=== PATIENT | male | born 1990 | race Caucasian/White ===

== ENCOUNTER 2019-06-09 20:41 | Emergency (ER) | payer SELFPAY ==
[~2019-06-09] VITALS: Ht 177.8 cm; Wt 85.0 kg
[2019-06-09 20:50] VITALS: BP 117/85
--- NOTE | 2019-06-09 22:26 | NUR ---
PT SLEEPING SOUNDLY, NO COMPLAINTS
--- NOTE | 2019-06-10 00:04 | NUR ---
PT SLEEPING, NO COMPLAINTS
--- NOTE | 2019-06-10 01:04 | NUR ---
PT ALERT AND ORIENTED, DENIES MEDICAL COMPLAINT, AMBULATES WITHOUT ASSISTANCE
== END 2019-06-10 01:07 | disposition home or self-care (01) ==
LOC: ED 23:57
DX: F10.120 Alcohol abuse with intoxication, uncomplicated (principal); Y90.0 Blood alcohol level of less than 20 mg/100 ml
CPT/HCPCS: 99283

== ENCOUNTER 2019-06-10 21:46 | Inpatient (IN) | payer OTHER ==
[~2019-06-10] VITALS: Ht 182.9 cm; Wt 103.4 kg
[2019-06-10] MEDS ORDERED: LORazepam 2 MG/ML, 1ML ONE ×2 (21:55→22:19)
--- NOTE | 2019-06-10 21:55 | NUR ---
TEMP PROBE PETE PLACED BY LIAN VARGAS RN.
[2019-06-10] MEDS ORDERED: ACETAMINOPHEN 500 MG TABLET ONE (21:58)
--- NOTE | 2019-06-10 21:59 | NUR ---
CORE TEMP 106, COOLING MEASURES STARTED, NOTES PT TO BE INTUBATED AND THEN WILL DO ICE LAVAGE PETE/NG
[2019-06-10] MEDS ORDERED: SODIUM CHLORIDE 0.9% 1,000ML IVBOLUS ONE ×3 (22:00→23:30)
[2019-06-10] MEDS ORDERED: ACETAMINOPHEN 500 MG TABLET PO ONE (22:00)
[2019-06-10] MEDS ORDERED: LORazepam 2 MG/ML, 1ML IVPush PRN (22:00)
[2019-06-10] MEDS ORDERED: LORazepam 2 MG/ML, 1ML IVPush ONE ×2 (22:00→22:30)
[2019-06-10] MEDS ORDERED: SODIUM CHLORIDE FLUSH 10ML SYR IVF ONE ×2 (22:00)
--- NOTE | 2019-06-10 22:00 | NUR ---
DR BA CALLING POISON CONTROL
--- NOTE | 2019-06-10 22:05 | NUR ---
PT TO BE INTUBATED WITH 8.0 ET TUBE, MEDICATED WITH ROCURONIUM 100MG, ETOMIDATE 20MG, RT TO BEDSIDE,
[2019-06-10 22:07] LABS: MEAN CORPUSCULAR HEMOGLOBIN 31.9 pg (27.5-34.5); MEAN CORPUSCULAR HGB CONC 33.7 g/dL (33.2-36.2); MEAN CORPUSCULAR VOLUME 94.5 fL (81-97); MEAN PLATELET VOLUME 8.9 fL (7.4-10.4); PLATELET COUNT 395 x10^3/uL (130-400); RED BLOOD COUNT 4.91 x10^6/uL (4.38-5.82); RED CELL DISTRIBUTION WIDTH 13.7 % (9.4-14.8)
--- NOTE | 2019-06-10 22:11 | NUR ---
PT INTUBATED AT THIS TIME, PLACEMENT CONFIRMED WITH BREATH SOUNDS BILAT AND EQUAL RISE AND FALL OF CHEST , END TIDAL 16, CO2 DETECTOR. SPO2 REMAINED ABOVE 90% THROUGHOUT INTUBATION. 16 [place] OG TUBE PLACED BY DANIEL YANES, PLACEMENT CONFIRMED BY AUSCULATION AND ASPIRATION. ET TUBE SECURED 25 AT THE TEETH
[2019-06-10 22:15] LABS: ALANINE AMINOTRANSFERASE 133 U/L (12-78); ALBUMIN 3.9 g/dL (3.4-5.0); ANION GAP 16 mmol/L (5-15); CALCIUM 8.7 mg/dL (8.5-10.1); CHLORIDE 104 mmol/L (98-107); CREATININE 2.79 mg/dL (0.7-1.3)
--- NOTE | 2019-06-10 22:15 | NUR ---
DR BA TALKING WITH POISON CONTROL AT THIS TIME. PT TO BE PLACED IN BODY BAG AND FILLED WITH ICE AT THIS TIME, ICE PACKS ALREADY TO AXILLA AND GROIN
[2019-06-10] MEDS ORDERED: PROPOFOL 100 ML IV PRN ×2 (22:19→23:40)
[2019-06-10 22:20] LABS: ALKALINE PHOSPHATASE 129 U/L (45-117); BILIRUBIN,TOTAL 1.3 mg/dL (0.2-1.0); TOTAL PROTEIN 8.3 g/dL (6.4-8.2)
[2019-06-10 22:22] LABS: SALICYLATE LEVEL < 1.7 mg/dL (2.8-20.0)
--- NOTE | 2019-06-10 22:22 | NUR ---
POISON CONTROL NOTES NOT TO ICE BAD, RECOMEEND ARTIC SUN FOR COOLING, PROPOFOL AND VERSED FOR SEDATION, RECOMMENT ATIVAN 2MG BE GIVEN AT THIS TIME. PT SEDATED CURRENTLY, BEING PLACED ON ARTIC SUN AT THIS TIME AND PREPARED FOR CENTRAL LINE PLACEMENT
[2019-06-10] MEDS ORDERED: CALCIUM CHLORIDE 10%, 10ML SYR ONE (22:29)
[2019-06-10] MEDS ORDERED: ALBUTEROL 0.5%, 20ML NPPB ONE (22:30)
[2019-06-10] MEDS ORDERED: FUROSEMIDE 40 MG/4 ML IVPush ONE (22:30)
[2019-06-10] MEDS ORDERED: DEXTROSE 50%, 50ML SYRINGE IVPush ONE (22:30)
[2019-06-10] MEDS ORDERED: INSULIN SINGLE DOSE, ER ONE (22:30)
[2019-06-10] MEDS ORDERED: INSULIN REGULAR 100 UNITS/ML, 3ML VIAL IVPush ONE (22:30)
[2019-06-10] MEDS ORDERED: ETOMIDATE 20 MG/10 ML IV ONE (22:30)
[2019-06-10] MEDS ORDERED: SODIUM BICARB 8.4%, 50ML SYRINGE IVPush ONE (22:30)
[2019-06-10] MEDS ORDERED: CALCIUM CHLORIDE 10%, 10ML SYR IVPush ONE (22:30)
--- NOTE | 2019-06-10 22:32 | NUR ---
ARTIC SUN STARTED AT THIS TIME
[2019-06-10 22:33] LABS: ACETONE, SERUM Small (20mg/dL) mg/dL (Negative)
[2019-06-10 22:35] LABS: BASOPHILS # (AUTO) 0.03 x10^3/uL (0-0.1); BASOPHILS % (AUTO) 0 % (0-1); EOSINOPHILS # (AUTO) 0.11 x10^3/uL (0-0.4); EOSINOPHILS % (AUTO) 1 % (1-7); LYMPHOCYTES # (AUTO) 1.48 x10^3/uL (1-3.4); LYMPHOCYTES % (AUTO) 7 % (22-44); MD MORPH REVIEW ONLY; MONOCYTES # (AUTO) 0.65 x10^3/uL (0.2-0.8); MONOCYTES % (AUTO) 3 % (2-9); NEUTROPHILS # (AUTO) 17.69 x10^3/uL (1.8-6.8); NEUTROPHILS % (AUTO) 89 % (42-75)
[2019-06-10 22:37] LABS: <PLATELET ESTIMATE> ADEQUATE; <RBC MORPHOLOGY> NORMAL; HYPERSEG PMNs 1+; LARGE PLATELETS 1+
[2019-06-10] MEDS ORDERED: SODIUM CHLORIDE 0.9% 1,000 ML IV ONE (22:37)
[2019-06-10] MEDS: MIDAZOLAM HCL 25 MG in SODIUM CHLORIDE 0.9% 245 ML IV PRN ×2 (22:40→23:19)
[2019-06-10] MEDS ORDERED: FUROSEMIDE 40 MG/4 ML ONE (22:41)
[2019-06-10 22:46] LABS: AMPHETAMINE SCREEN, URINE Positive (Negative); BARBITURATE SCREEN, URINE Negative (Negative); BENZODIAZEPINE SCREEN, URINE Negative (Negative); CANNABINOID SCREEN, URINE Negative (Negative); COCAINE SCREEN, URINE Negative (Negative); METHADONE SCREEN, URINE Negative (Negative); OPIATE SCREEN, URINE Negative (Negative)
--- NOTE | 2019-06-10 22:51 | NUR ---
student and ERP at bedside placing central line.
[2019-06-10 23:10] LABS: INTERNATIONAL NORMALIZED RATIO 1.03 (0.93-1.1); PROTHROMBIN TIME 10.8 Seconds (9.6-11.5)
--- NOTE | 2019-06-10 23:14 | NUR ---
per erp temp target 36.8 c , when target reached will stop the arctic sun.
[2019-06-10 23:27] LABS: RAPID INFLUENZA A Negative (Negative); RAPID INFLUENZA B Negative (Negative)
[2019-06-10] MEDS ORDERED: VANCOMYCIN PER PHARMACY MC ONE (23:30)
[2019-06-10] MEDS ORDERED: VANCOMYCIN 2,200 MG in SODIUM CHLORIDE 0.9% 500 ML IV ONE (23:30)
[2019-06-10] MEDS ORDERED: PIPERACILLIN/TAZO/PMX 3.375GM 50 ML IVPB ONE (23:30)
[2019-06-10 23:31] LABS: MICROSCOPIC INDICATED
[2019-06-10] MEDS ORDERED: PIPERACILLIN/TAZO/PMX 3.375GM 50 ML ONE (23:34)
--- NOTE | 2019-06-10 23:39 | NUR ---
CENTRAL LINE CLEARED FOR USE BY DR BA, HOSPITALIST TO BEDSIDE
[2019-06-10 23:40] LABS: CULTURE INDICATED? NO
[2019-06-10] MEDS ORDERED: MIDAZOLAM HCL 25 MG in SODIUM CHLORIDE 0.9% 245 ML IV PRN (23:40)
[2019-06-11] MEDS ORDERED: MIDAZOLAM 1 MG/ML, 2ML IVPush PRN
[2019-06-11] MEDS ORDERED: LACTULOSE 20 GM/30 ML UDC NG PRN
[2019-06-11] MEDS ORDERED: GLUCAGON 1 MG IM PRN
[2019-06-11] MEDS ORDERED: DEXTROSE 4 GM TAB.CHEW PO PRN
[2019-06-11] MEDS ORDERED: SENNA/DOCUSATE TABLET NG PRN
[2019-06-11] MEDS ORDERED: SODIUM CHLORIDE 0.9% 1,000 ML IV SCH
[2019-06-11] MEDS ORDERED: SENNA 176 MG/5 ML ORAL SOL NG PRN
[2019-06-11] MEDS ORDERED: BISACODYL 10 MG SUPP PR PRN
--- NOTE | 2019-06-11 00:06 | NUR ---
BED ASSIGNED. REPORT GIVEN TO FARZANA RUCKER.
[2019-06-11] MEDS: MIDAZOLAM HCL 25 MG in SODIUM CHLORIDE 0.9% 245 ML IV PRN ×3 (01:51→08:49)
[2019-06-11 02:25] VITALS: BP 123/71
[2019-06-11 04:00] VITALS: BP 99/65
[2019-06-11 04:40] LABS: MEAN CORPUSCULAR HEMOGLOBIN 31.9 pg (27.5-34.5); MEAN CORPUSCULAR HGB CONC 33.4 g/dL (33.2-36.2); MEAN CORPUSCULAR VOLUME 95.6 fL (81-97); MEAN PLATELET VOLUME 8.7 fL (7.4-10.4); PLATELET COUNT 214 x10^3/uL (130-400); RED BLOOD COUNT 4.57 x10^6/uL (4.38-5.82); RED CELL DISTRIBUTION WIDTH 13.6 % (9.4-14.8)
[2019-06-11 04:46] LABS: ANION GAP 9 mmol/L (5-15); CALCIUM 7.8 mg/dL (8.5-10.1); CHLORIDE 110 mmol/L (98-107); CREATININE 1.61 mg/dL (0.7-1.3)
[2019-06-11 05:03] LABS: BASOPHILS # (AUTO) 0.06 x10^3/uL (0-0.1); BASOPHILS % (AUTO) 0 % (0-1); EOSINOPHILS # (AUTO) 0.01 x10^3/uL (0-0.4); EOSINOPHILS % (AUTO) 0 % (1-7); LYMPHOCYTES # (AUTO) 0.93 x10^3/uL (1-3.4); LYMPHOCYTES % (AUTO) 4 % (22-44); MD MORPH REVIEW ONLY; MONOCYTES # (AUTO) 0.78 x10^3/uL (0.2-0.8); MONOCYTES % (AUTO) 4 % (2-9); NEUTROPHILS # (AUTO) 19.25 x10^3/uL (1.8-6.8); NEUTROPHILS % (AUTO) 92 % (42-75)
[2019-06-11 05:04] LABS: <PLATELET ESTIMATE> ADEQUATE; <RBC MORPHOLOGY> NORMAL; HYPERSEG PMNs 1+; LARGE PLATELETS 1+
[2019-06-11] MEDS: INSULIN LISPRO 100 UNITS/ML, PEN SQ-INSULIN SCH ×4 (07:00→22:00)
[2019-06-11] MEDS ORDERED: PHARMACY MAY ADJ FOR RENAL FX MC SCH ×2 (08:00)
[2019-06-11] MEDS ORDERED: FENTANYL PF 100 MCG/2ML IVPush PRN (08:00)
[2019-06-11] MEDS ORDERED: LIDOCAINE-MPF 1%, 2ML ENDO PRN ×2 (08:00)
[2019-06-11] MEDS: THIAMINE 200 MG in SODIUM CHLORIDE 0.9% 50 ML IV SCH (08:25)
[2019-06-11] MEDS: PIPERACILLIN/TAZO/PMX 3.375GM 50 ML IV SCH ×3 (08:25→19:59)
[2019-06-11] MEDS: FAMOTIDINE 20 MG/2 ML IV SCH ×2 (08:25→20:01)
[2019-06-11] MEDS: HEPARIN 5,000 UNITS/ML, 1ML SQ SCH ×2 (08:25→16:02)
[2019-06-11] MEDS: POTASSIUM CHLORIDE 10% 40 MEQ/30 ML UDC PO SCH ×2 (08:25→20:02)
[2019-06-11] MEDS: CHOLESTYRAMINE LIGHT 4GM PACKET PO SCH ×2 (08:26→20:02)
[2019-06-11] MEDS: SODIUM CHLORIDE FLUSH 10ML SYR IVF SCH ×2 (08:27→20:01)
[2019-06-11 08:57] LABS: CREATINE KINASE, TOTAL 8813 U/L (39-308); TRIGLYCERIDES 172 mg/dL (50-200)
[2019-06-11] MEDS ORDERED: SODIUM BICARB 8.4%, 50ML SYRINGE ONE (10:39)
[2019-06-11] MEDS ORDERED: ETOMIDATE 40 MG/20 ML ONE (10:40)
[2019-06-11] MEDS ORDERED: PROPOFOL 10 MG/ML, 100ML IV ONE (10:40)
[2019-06-11] MEDS ORDERED: ROCURONIUM 10MG/ML,5ML ONE (10:40)
[2019-06-11] MEDS: MIDAZOLAM HCL 50 MG in SODIUM CHLORIDE 0.9% 240 ML IV PRN ×2 (11:42→17:52)
[2019-06-11] MEDS: PROPOFOL 100 ML IV PRN ×3 (11:44→20:25)
[2019-06-11] MEDS: DEXTROSE 50%, 50ML SYRINGE IVPush PRN ×2 (14:02→21:50)
[2019-06-11] MEDS ORDERED: MIDAZOLAM HCL 25 MG in SODIUM CHLORIDE 0.9% 245 ML IV PRN (23:40)
[2019-06-11] MEDS: D5%-0.9% NACL 1,000 ML IV SCH (23:44)
[2019-06-12] MEDS ORDERED: SODIUM CHLORIDE 0.9% 1,000 ML IV SCH
[2019-06-12] MEDS: PIPERACILLIN/TAZO/PMX 3.375GM 50 ML IV SCH ×4 (00:32→18:15)
[2019-06-12] MEDS: HEPARIN 5,000 UNITS/ML, 1ML SQ SCH ×3 (00:32→15:48)
[2019-06-12] MEDS: MIDAZOLAM HCL 50 MG in SODIUM CHLORIDE 0.9% 240 ML IV PRN (00:33)
[2019-06-12] MEDS: PROPOFOL 100 ML IV PRN ×2 (02:00→06:36)
[2019-06-12 03:58] VITALS: BP 105/68
[2019-06-12] MEDS: INSULIN LISPRO 100 UNITS/ML, PEN SQ-INSULIN SCH ×4 (04:00→22:58)
[2019-06-12 04:29] LABS: BASOPHILS # (AUTO) 0.02 x10^3/uL (0-0.1); BASOPHILS % (AUTO) 0 % (0-1); EOSINOPHILS # (AUTO) 0.06 x10^3/uL (0-0.4); EOSINOPHILS % (AUTO) 1 % (1-7); LYMPHOCYTES # (AUTO) 1.78 x10^3/uL (1-3.4); LYMPHOCYTES % (AUTO) 18 % (22-44); MD NO; MEAN CORPUSCULAR HEMOGLOBIN 31.7 pg (27.5-34.5); MEAN CORPUSCULAR HGB CONC 33.1 g/dL (33.2-36.2); MEAN CORPUSCULAR VOLUME 95.9 fL (81-97); MEAN PLATELET VOLUME 8.7 fL (7.4-10.4); MONOCYTES # (AUTO) 0.26 x10^3/uL (0.2-0.8); MONOCYTES % (AUTO) 3 % (2-9); NEUTROPHILS # (AUTO) 8.03 x10^3/uL (1.8-6.8); NEUTROPHILS % (AUTO) 79 % (42-75); PLATELET COUNT 191 x10^3/uL (130-400); RED BLOOD COUNT 4.12 x10^6/uL (4.38-5.82); RED CELL DISTRIBUTION WIDTH 14.4 % (9.4-14.8)
[2019-06-12 04:34] LABS: ANION GAP 4 mmol/L (5-15); CALCIUM 7.5 mg/dL (8.5-10.1); CHLORIDE 116 mmol/L (98-107); CREATININE 1.22 mg/dL (0.7-1.3)
[2019-06-12 04:55] LABS: CLOSTRIDIUM DIFFICILE ANTIGEN NEGATIVE; CLOSTRIDIUM DIFFICILE TOXIN NEGATIVE (Negative)
[2019-06-12] MEDS: SODIUM CHLORIDE FLUSH 10ML SYR IVF SCH ×2 (08:40→21:21)
[2019-06-12] MEDS: CHOLESTYRAMINE LIGHT 4GM PACKET PO SCH ×2 (08:40→21:00)
[2019-06-12] MEDS: FAMOTIDINE 20 MG/2 ML IV SCH ×2 (08:40→21:21)
[2019-06-12] MEDS: THIAMINE 200 MG in SODIUM CHLORIDE 0.9% 50 ML IV SCH (08:47)
[2019-06-12] MEDS ORDERED: ACETAMINOPHEN 325 MG TABLET ONE (10:07)
[2019-06-12] MEDS ORDERED: ACETAMINOPHEN 325 MG TABLET PO PRN (10:30)
[2019-06-12] MEDS ORDERED: VANCOMYCIN PER PHARMACY MC PRN (12:30)
[2019-06-12] MEDS: DEXMEDETOMIDINE 200 MCG in SODIUM CHLORIDE 0.9% 48 ML IV PRN ×2 (12:34→22:56)
[2019-06-12] MEDS ORDERED: PHARMACOKINETIC MONITORING MC PRN (13:00)
[2019-06-12] MEDS: D5%-0.9% NACL 1,000 ML IV SCH (13:26)
[2019-06-12] MEDS: VANCOMYCIN 2,100 MG in SODIUM CHLORIDE 0.9% 500 ML IV SCH (14:33)
[2019-06-12 16:16] LABS: MICROSCOPIC INDICATED
[2019-06-12 16:20] LABS: CULTURE INDICATED? NO
[2019-06-12] MEDS: DEXTROSE 50%, 50ML SYRINGE IVPush PRN (17:30)
[2019-06-13] MEDS: HEPARIN 5,000 UNITS/ML, 1ML SQ SCH ×4 (00:42→23:53)
[2019-06-13] MEDS: PIPERACILLIN/TAZO/PMX 3.375GM 50 ML IV SCH ×4 (00:42→21:04)
[2019-06-13] MEDS: VANCOMYCIN 2,100 MG in SODIUM CHLORIDE 0.9% 500 ML IV SCH (02:11)
[2019-06-13] MEDS: INSULIN LISPRO 100 UNITS/ML, PEN SQ-INSULIN SCH (04:00)
[2019-06-13 04:28] LABS: O2 FLOW 0 L/min
[2019-06-13 04:35] LABS: BASOPHILS # (AUTO) 0.04 x10^3/uL (0-0.1); BASOPHILS % (AUTO) 1 % (0-1); EOSINOPHILS # (AUTO) 0.01 x10^3/uL (0-0.4); EOSINOPHILS % (AUTO) 0 % (1-7); LYMPHOCYTES # (AUTO) 2.68 x10^3/uL (1-3.4); LYMPHOCYTES % (AUTO) 34 % (22-44); MD NO; MEAN CORPUSCULAR HEMOGLOBIN 31.8 pg (27.5-34.5); MEAN CORPUSCULAR HGB CONC 33.8 g/dL (33.2-36.2); MEAN PLATELET VOLUME 8.9 fL (7.4-10.4); MONOCYTES # (AUTO) 0.45 x10^3/uL (0.2-0.8); MONOCYTES % (AUTO) 6 % (2-9); NEUTROPHILS # (AUTO) 4.77 x10^3/uL (1.8-6.8); NEUTROPHILS % (AUTO) 60 % (42-75); PLATELET COUNT 175 x10^3/uL (130-400); RED BLOOD COUNT 4.13 x10^6/uL (4.38-5.82); RED CELL DISTRIBUTION WIDTH 13.6 % (9.4-14.8)
[2019-06-13 04:42] LABS: ANION GAP 7 mmol/L (5-15); CALCIUM 7.7 mg/dL (8.5-10.1); CHLORIDE 111 mmol/L (98-107)
[2019-06-13] MEDS: D5%-0.9% NACL 1,000 ML IV SCH ×2 (06:33→23:53)
[2019-06-13 07:32] LABS: ALBUMIN 2.7 g/dL (3.4-5.0); BILIRUBIN, DIRECT 0.6 mg/dL (0.1-0.2)
[2019-06-13 08:00] LABS: BILIRUBIN,INDIRECT 0.9 mg/dL (0.0-2.0); BILIRUBIN,TOTAL 1.5 mg/dL (0.2-1.0)
[2019-06-13] MEDS: CHOLESTYRAMINE LIGHT 4GM PACKET PO SCH ×2 (08:32→21:04)
[2019-06-13] MEDS: SODIUM CHLORIDE FLUSH 10ML SYR IVF SCH ×2 (08:32→21:00)
[2019-06-13] MEDS: POTASSIUM CHLORIDE 20 MEQ TAB.ER.PRT PO SCH ×2 (08:32→16:55)
[2019-06-13] MEDS: FAMOTIDINE 20 MG/2 ML IV SCH (08:32)
[2019-06-13] MEDS: THIAMINE 200 MG in SODIUM CHLORIDE 0.9% 50 ML IV SCH (08:33)
[2019-06-13] MEDS ORDERED: SODIUM PHOSPHATE 20 MMOL in SODIUM CHLORIDE 0.9% 500 ML IV ONE (09:30)
[2019-06-13 19:55] VITALS: BP 120/80
[2019-06-14 00:53] VITALS: BP 132/90
[2019-06-14] MEDS: PIPERACILLIN/TAZO/PMX 3.375GM 50 ML IV SCH ×4 (03:17→22:04)
[2019-06-14 05:02] LABS: ALBUMIN 2.9 g/dL (3.4-5.0); ANION GAP 7 mmol/L (5-15); CHLORIDE 109 mmol/L (98-107)
[2019-06-14 05:34] LABS: ALANINE AMINOTRANSFERASE 415 U/L (12-78); ALKALINE PHOSPHATASE 80 U/L (45-117); BILIRUBIN,TOTAL 1.3 mg/dL (0.2-1.0); CREATININE 1.14 mg/dL (0.7-1.3); TOTAL PROTEIN 6.7 g/dL (6.4-8.2)
[2019-06-14 06:29] LABS: CREATINE KINASE, TOTAL 13684 U/L (39-308)
[2019-06-14 06:38] VITALS: BP 137/96
[2019-06-14] MEDS: POTASSIUM CHLORIDE 20 MEQ TAB.ER.PRT PO SCH ×2 (07:53→16:20)
[2019-06-14] MEDS: HEPARIN 5,000 UNITS/ML, 1ML SQ SCH ×2 (07:53→16:20)
[2019-06-14] MEDS ORDERED: MAGNESIUM SULFATE PMX 2GM/50ML 50 ML IV ONE (08:00)
[2019-06-14] MEDS ORDERED: POTASSIUM CHLORIDE 40 MEQ in SODIUM CHLORIDE 0.9% 500 ML IV ONE (08:30)
[2019-06-14] MEDS: SODIUM CHLORIDE FLUSH 10ML SYR IVF SCH ×2 (09:00→20:06)
[2019-06-14] MEDS: D5%-0.9% NACL 1,000 ML IV SCH ×2 (10:46→17:40)
[2019-06-14] MEDS: THIAMINE 200 MG in SODIUM CHLORIDE 0.9% 50 ML IV SCH (10:46)
[2019-06-14 13:52] VITALS: BP 130/79
[2019-06-14] MEDS: OLANZAPINE 5 MG TABLET PO SCH (20:06)
[2019-06-14 20:09] VITALS: BP 129/88
[2019-06-15] MEDS: HEPARIN 5,000 UNITS/ML, 1ML SQ SCH ×3 (00:32→17:15)
[2019-06-15] MEDS: D5%-0.9% NACL 1,000 ML IV SCH ×3 (00:32→17:15)
[2019-06-15 01:50] VITALS: BP 117/76
[2019-06-15] MEDS: PIPERACILLIN/TAZO/PMX 3.375GM 50 ML IV SCH ×4 (04:38→23:17)
[2019-06-15 06:05] LABS: ALBUMIN 2.8 g/dL (3.4-5.0); ANION GAP 7 mmol/L (5-15); CALCIUM 8.2 mg/dL (8.5-10.1); CHLORIDE 111 mmol/L (98-107)
[2019-06-15 06:06] LABS: BASOPHILS # (AUTO) 0.02 x10^3/uL (0-0.1); BASOPHILS % (AUTO) 0 % (0-1); EOSINOPHILS # (AUTO) 0.09 x10^3/uL (0-0.4); EOSINOPHILS % (AUTO) 1 % (1-7); LYMPHOCYTES # (AUTO) 2.81 x10^3/uL (1-3.4); LYMPHOCYTES % (AUTO) 27 % (22-44); MD NO; MEAN CORPUSCULAR HEMOGLOBIN 31.5 pg (27.5-34.5); MEAN CORPUSCULAR HGB CONC 32.8 g/dL (33.2-36.2); MEAN PLATELET VOLUME 8.9 fL (7.4-10.4); MONOCYTES # (AUTO) 1.15 x10^3/uL (0.2-0.8); MONOCYTES % (AUTO) 11 % (2-9); NEUTROPHILS # (AUTO) 6.56 x10^3/uL (1.8-6.8); NEUTROPHILS % (AUTO) 62 % (42-75); PLATELET COUNT 230 x10^3/uL (130-400); RED BLOOD COUNT 4.73 x10^6/uL (4.38-5.82); RED CELL DISTRIBUTION WIDTH 13.5 % (9.4-14.8)
[2019-06-15 06:12] LABS: ALANINE AMINOTRANSFERASE 333 U/L (12-78); ALKALINE PHOSPHATASE 77 U/L (45-117); BILIRUBIN,TOTAL 1.1 mg/dL (0.2-1.0); CREATININE 1.18 mg/dL (0.7-1.3); TOTAL PROTEIN 6.9 g/dL (6.4-8.2); TROPONIN I 0.075 ng/mL (0.000-0.045)
[2019-06-15 06:33] LABS: CREATINE KINASE, TOTAL 7337 U/L (39-308)
[2019-06-15 07:56] VITALS: BP 138/82
[2019-06-15] MEDS: SODIUM CHLORIDE FLUSH 10ML SYR IVF SCH ×2 (08:48→21:23)
[2019-06-15] MEDS: OLANZAPINE 5 MG TABLET PO SCH ×2 (08:48→21:22)
[2019-06-15] MEDS: THIAMINE 200 MG in SODIUM CHLORIDE 0.9% 50 ML IV SCH (09:58)
[2019-06-15 19:52] VITALS: BP 140/90
[2019-06-16] MEDS: D5%-0.9% NACL 1,000 ML IV SCH ×4 (00:15→21:06)
[2019-06-16] MEDS: HEPARIN 5,000 UNITS/ML, 1ML SQ SCH (00:15)
[2019-06-16 01:38] VITALS: BP 132/79
[2019-06-16] MEDS: PIPERACILLIN/TAZO/PMX 3.375GM 50 ML IV SCH (04:17)
[2019-06-16] MEDS: SODIUM CHLORIDE FLUSH 10ML SYR IVF SCH ×2 (07:38→20:01)
[2019-06-16] MEDS: AMOXICILLIN/CLAV 875-125MG TABLET PO SCH ×2 (07:43→20:00)
[2019-06-16] MEDS: OLANZAPINE 5 MG TABLET PO SCH ×2 (07:44→20:00)
[2019-06-16] MEDS: ENOXAPARIN 40 MG/0.4 ML SQ SCH (07:44)
[2019-06-16 08:05] VITALS: BP 109/68
[2019-06-16 08:53] LABS: ALBUMIN 2.7 g/dL (3.4-5.0); ANION GAP 6 mmol/L (5-15); CALCIUM 8.3 mg/dL (8.5-10.1); CHLORIDE 113 mmol/L (98-107)
[2019-06-16 09:09] LABS: ALANINE AMINOTRANSFERASE 248 U/L (12-78); ALKALINE PHOSPHATASE 76 U/L (45-117); BILIRUBIN,TOTAL 0.8 mg/dL (0.2-1.0); CREATINE KINASE, TOTAL 3474 U/L (39-308); CREATININE 1.17 mg/dL (0.7-1.3); TOTAL PROTEIN 6.7 g/dL (6.4-8.2)
[2019-06-16 13:16] VITALS: BP 119/80
[2019-06-16 21:22] VITALS: BP 123/73
[2019-06-17 01:31] VITALS: BP 118/74
[2019-06-17] MEDS: D5%-0.9% NACL 1,000 ML IV SCH ×4 (03:35→22:46)
[2019-06-17 05:14] LABS: BASOPHILS # (AUTO) 0.04 x10^3/uL (0-0.1); BASOPHILS % (AUTO) 0 % (0-1); EOSINOPHILS # (AUTO) 0.16 x10^3/uL (0-0.4); EOSINOPHILS % (AUTO) 2 % (1-7); LYMPHOCYTES # (AUTO) 2.49 x10^3/uL (1-3.4); LYMPHOCYTES % (AUTO) 29 % (22-44); MD NO; MEAN CORPUSCULAR HGB CONC 33.1 g/dL (33.2-36.2); MEAN CORPUSCULAR VOLUME 96.6 fL (81-97); MEAN PLATELET VOLUME 9.2 fL (7.4-10.4); MONOCYTES # (AUTO) 1.12 x10^3/uL (0.2-0.8); MONOCYTES % (AUTO) 13 % (2-9); NEUTROPHILS # (AUTO) 4.69 x10^3/uL (1.8-6.8); NEUTROPHILS % (AUTO) 55 % (42-75); PLATELET COUNT 303 x10^3/uL (130-400)
[2019-06-17 05:20] LABS: ALBUMIN 2.7 g/dL (3.4-5.0); ANION GAP 7 mmol/L (5-15); CALCIUM 8.1 mg/dL (8.5-10.1); CHLORIDE 112 mmol/L (98-107)
[2019-06-17 05:24] LABS: ALANINE AMINOTRANSFERASE 210 U/L (12-78); ALKALINE PHOSPHATASE 88 U/L (45-117); BILIRUBIN,TOTAL 0.5 mg/dL (0.2-1.0); CREATININE 1.04 mg/dL (0.7-1.3); TOTAL PROTEIN 6.7 g/dL (6.4-8.2)
[2019-06-17 07:13] VITALS: BP 118/72
[2019-06-17] MEDS: SODIUM CHLORIDE FLUSH 10ML SYR IVF SCH ×2 (08:58→20:38)
[2019-06-17] MEDS: AMOXICILLIN/CLAV 875-125MG TABLET PO SCH ×2 (08:58→20:38)
[2019-06-17] MEDS: ENOXAPARIN 40 MG/0.4 ML SQ SCH (08:58)
[2019-06-17] MEDS: OLANZAPINE 5 MG TABLET PO SCH ×2 (08:58→20:38)
[2019-06-17 13:48] VITALS: BP 120/71
[2019-06-17 18:24] VITALS: BP 125/80
[2019-06-18 00:07] VITALS: BP 122/74
[2019-06-18] MEDS: D5%-0.9% NACL 1,000 ML IV SCH ×3 (05:22→18:25)
[2019-06-18 05:38] LABS: CHLORIDE 110 mmol/L (98-107)
[2019-06-18 05:45] LABS: ALANINE AMINOTRANSFERASE 190 U/L (12-78); ALKALINE PHOSPHATASE 87 U/L (45-117); ANION GAP 5 mmol/L (5-15); BILIRUBIN,TOTAL 0.7 mg/dL (0.2-1.0); CALCIUM 8.6 mg/dL (8.5-10.1); CREATINE KINASE, TOTAL 839 U/L (39-308); CREATININE 1.11 mg/dL (0.7-1.3); TOTAL PROTEIN 7.2 g/dL (6.4-8.2)
[2019-06-18 06:30] VITALS: BP 122/76
[2019-06-18] MEDS: AMOXICILLIN/CLAV 875-125MG TABLET PO SCH ×2 (08:39→21:25)
[2019-06-18] MEDS: OLANZAPINE 5 MG TABLET PO SCH ×2 (08:40→21:25)
[2019-06-18] MEDS: ENOXAPARIN 40 MG/0.4 ML SQ SCH (08:40)
[2019-06-18] MEDS: SODIUM CHLORIDE FLUSH 10ML SYR IVF SCH ×2 (08:40→21:25)
[2019-06-18 13:10] VITALS: BP 123/76
[2019-06-18 18:52] VITALS: BP 129/79
[2019-06-19 01:53] VITALS: BP 109/72
[2019-06-19] MEDS: D5%-0.9% NACL 1,000 ML IV SCH ×2 (02:21→08:22)
[2019-06-19 05:45] LABS: ALBUMIN 2.8 g/dL (3.4-5.0); ANION GAP 8 mmol/L (5-15); CALCIUM 8.6 mg/dL (8.5-10.1); CHLORIDE 110 mmol/L (98-107)
[2019-06-19 05:51] LABS: ALANINE AMINOTRANSFERASE 152 U/L (12-78); ALKALINE PHOSPHATASE 92 U/L (45-117); BILIRUBIN,TOTAL 0.5 mg/dL (0.2-1.0); CREATINE KINASE, TOTAL 348 U/L (39-308); CREATININE 1.09 mg/dL (0.7-1.3); TOTAL PROTEIN 6.7 g/dL (6.4-8.2)
[2019-06-19 06:46] VITALS: BP 103/66
[2019-06-19] MEDS: OLANZAPINE 5 MG TABLET PO SCH (08:21)
[2019-06-19] MEDS: ENOXAPARIN 40 MG/0.4 ML SQ SCH (08:21)
[2019-06-19] MEDS: AMOXICILLIN/CLAV 875-125MG TABLET PO SCH (08:21)
[2019-06-19] MEDS: SODIUM CHLORIDE FLUSH 10ML SYR IVF SCH (08:22)
[2019-06-19 12:29] VITALS: BP 119/69
[2019-06-19] MEDS ORDERED: ERGO500017 PO (13:59)
[2019-06-19] MEDS ORDERED: OLAN5TAB9 PO (13:59)
[2019-06-19] MEDS ORDERED: ERGOCALCIFEROL 50,000 UNIT CAPSULE PO SCH (14:00)
[2019-06-19] MEDS ORDERED: FLU VACC QS2019-20 36MOS UP/PF 0.5 ML IM-VACC ONE (15:00)
== END 2019-06-19 15:58 | disposition home or self-care (01) | DRG 871 ==
LOC: ED 22:30 → EDIP 23:33 → CCU 06-11 00:24 → 4WST 06-13 14:25
PROVIDERS: ADMIT Internal Medicine; ATTEND Internal Medicine
PROC: 02HV33Z Insertion of Infusion Device into Superior Vena Cava, Percutaneous Approach (ICD-10-PCS; principal; 2019-06-10)
PROC: 5A1945Z Respiratory Ventilation, 24-96 Consecutive Hours (ICD-10-PCS; 2019-06-10)
PROC: 0BH17EZ Insertion of Endotracheal Airway into Trachea, Via Natural or Artificial Opening (ICD-10-PCS; 2019-06-10)
PROC: 0T9B70Z Drainage of Bladder with Drainage Device, Via Natural or Artificial Opening (ICD-10-PCS; 2019-06-12)
DX: A41.9 Sepsis, unspecified organism (principal); G92 Toxic encephalopathy; J15.9 Unspecified bacterial pneumonia; J96.01 Acute respiratory failure with hypoxia; N17.0 Acute kidney failure with tubular necrosis; E87.2 Acidosis; Z99.11 Dependence on respirator [ventilator] status; M62.82 Rhabdomyolysis; T43.621A Poisoning by amphetamines, accidental (unintentional), initial encounter; B19.20 Unspecified viral hepatitis C without hepatic coma; E55.9 Vitamin D deficiency, unspecified; E86.0 Dehydration; E87.5 Hyperkalemia; F10.10 Alcohol abuse, uncomplicated; F15.129 Other stimulant abuse with intoxication, unspecified; F17.210 Nicotine dependence, cigarettes, uncomplicated; F29 Unspecified psychosis not due to a substance or known physiological condition; Z59.0 Homelessness; Y92.89 Other specified places as the place of occurrence of the external cause
CPT/HCPCS: 31500; 36415; 36556; 36600; 84145; 87400; 96361; 96374; 96375; 96376; 99291; 99292; J3490; J7042; 70450; 71045; 80048; 80053; 80074; 80076; 80307; 81001; 82010; 82140; 82306; 82550; 82607; 82803; 82962; 83605; 83735; 84100; 84478; 84484; 85025; 85610; 85730; 87040; 87070; 87081; 87205; 87324; 87389; 87521; 90686; 93005; 93306; 94003; G0378; J1644; J1650; J1815; J1940; J2250; J2543; J2704; J3370; J3411; J3480; J2060; J3475; J7030; J7040; J7050

== ENCOUNTER 2019-07-13 21:42 | Emergency (ER) | payer MEDICAID ==
[~2019-07-13] VITALS: Ht 182.9 cm; Wt 108.0 kg
[~2019-07-13 21:42] MED LIST: ERGO500017 PO; OLAN5TAB9 PO
[2019-07-13 21:44] VITALS: BP 133/82
--- NOTE | 2019-07-13 22:13 | NUR ---
PT C/O HAVING AUDITORY AND VISUAL HALLUCINATIONS FOR THE PAST FEW WEEKS. WAS TAKING MEDS, BUT HASN'T TAKEN ANY IN A WHILE. AWAITING ORDERS AT THIS TIME.
--- NOTE | 2019-07-13 22:33 | NUR ---
UA COLLECTED AND TAKEN TO LAB.
[2019-07-13 22:53] LABS: BASOPHILS # (AUTO) 0.08 x10^3/uL (0-0.1); BASOPHILS % (AUTO) 1 % (0-1); EOSINOPHILS # (AUTO) 0.27 x10^3/uL (0-0.4); EOSINOPHILS % (AUTO) 3 % (1-7); LYMPHOCYTES # (AUTO) 2.75 x10^3/uL (1-3.4); LYMPHOCYTES % (AUTO) 25 % (22-44); MD NO; MEAN CORPUSCULAR HEMOGLOBIN 32.2 pg (27.5-34.5); MEAN CORPUSCULAR HGB CONC 32.9 g/dL (33.2-36.2); MEAN CORPUSCULAR VOLUME 97.6 fL (81-97); MEAN PLATELET VOLUME 8.5 fL (7.4-10.4); MONOCYTES # (AUTO) 1.15 x10^3/uL (0.2-0.8); MONOCYTES % (AUTO) 11 % (2-9); NEUTROPHILS # (AUTO) 6.58 x10^3/uL (1.8-6.8); NEUTROPHILS % (AUTO) 61 % (42-75); PLATELET COUNT 278 x10^3/uL (130-400); RED BLOOD COUNT 4.31 x10^6/uL (4.38-5.82)
[2019-07-13 23:03] LABS: ALBUMIN 3.2 g/dL (3.4-5.0); ANION GAP 5 mmol/L (5-15); CALCIUM 8.3 mg/dL (8.5-10.1); CHLORIDE 109 mmol/L (98-107); CREATININE 1.07 mg/dL (0.7-1.3)
[2019-07-13 23:06] LABS: AMPHETAMINE SCREEN, URINE Negative (Negative); BARBITURATE SCREEN, URINE Negative (Negative); BENZODIAZEPINE SCREEN, URINE Negative (Negative); CANNABINOID SCREEN, URINE Negative (Negative); COCAINE SCREEN, URINE Negative (Negative); METHADONE SCREEN, URINE Negative (Negative); OPIATE SCREEN, URINE Negative (Negative)
[2019-07-13 23:06] LABS: SALICYLATE LEVEL < 1.7 mg/dL (2.8-20.0)
--- NOTE | 2019-07-13 23:09 | NUR ---
ALL RESULTS ARE BACK AT THIS TIME. CHART UP FOR RECHECK.
--- NOTE | 2019-07-13 23:20 | NUR ---
MD AT BEDSIDE TO UPDATE PT ON POC
[2019-07-13] MEDS ORDERED: OLANZAPINE 5 MG TABLET ONE (23:26)
--- NOTE | 2019-07-13 23:29 | NUR ---
MEDS ADMIN PER SEP. PER PROVIDER OR IS FOR NOW, NOT 0900 07/14.
[2019-07-14] MEDS ORDERED: OLANZAPINE 5 MG TABLET PO SCH (09:00)
== END 2019-07-13 23:41 | disposition home or self-care (01) ==
LOC: ED 22:11
DX: F20.9 Schizophrenia, unspecified (principal); F29 Unspecified psychosis not due to a substance or known physiological condition; Z76.0 Encounter for issue of repeat prescription
CPT/HCPCS: 36415; 80048; 80307; 82040; 85025; 99283